=== PATIENT | female | born 1960 | race Caucasian/White ===

== ENCOUNTER 2022-07-12 12:25 | Emergency (ER) | payer BC ==
[2022-07-12] MEDS ORDERED: Dextrose 5%-Lactated Ringers 1,000 ML IV SCH (16:15)
== END 2022-07-12 19:55 | disposition home or self-care (01) ==
LOC: JD.ED 12:25
DX: R55 Syncope and collapse (principal); S90.32XA Contusion of left foot, initial encounter; W18.30XA Fall on same level, unspecified, initial encounter; Y92.000 Kitchen of unspecified non-institutional (private) residence as the place of occurrence of the external cause
CPT/HCPCS: 36415; 73630; 80053; 82553; 83735; 84443; 85025; 86140; 93005; 93225; 93226; 96360; 99284; J7121